=== PATIENT | female | born 1955 | race Caucasian/White ===

== ENCOUNTER 2020-04-27 11:11 | Outpatient (CLI) | payer MEDICARE, SELFPAY ==
--- NOTE | 2020-04-27 11:23 | XR_ITS ---
WS: [id number] LUMBAR SPINE: 6 VIEWS TECHNIQUE: AP, lateral, and L5-S1 spot. Lateral views in neutral, flexion and extension. HISTORY: M54.16 - Radiculopathy, lumbar region COMPARISON: None available. Mild LEFT convex curvature lumbar spine. L3 anterolisthesis by 8.5 mm. Otherwise mild degenerative di sc disease throughout the lumbar spine with severe facet arthritis from L3-4 to L5-S1. During flexion the anterolisthesis increases to 9.7 mm. During extension the anterolisthesis is 7.0 m m. Mild bilateral SI joint arthritis. Mild atherosclerosis aorta. XR/XR lumbar spine 6V w f/e [id number] IMPRESSION: 1. Severe facet joint arthritis from L3-4 to L5-S1. 2. L3 anterolisthesis by 8.5 mm with mild flexion extension instability. 3. Diffuse mild to moderate spondylosis.
== END 2020-04-27 11:12 | disposition home or self-care (01) ==
PROVIDERS: PCP Nurse Practitioner Family; Visit Provider Nurse Practitioner Family
DX: M54.16 Radiculopathy, lumbar region (principal); M47.816 Spondylosis without myelopathy or radiculopathy, lumbar region; M47.817 Spondylosis without myelopathy or radiculopathy, lumbosacral region
CPT/HCPCS: 72114

== ENCOUNTER 2020-07-13 08:44 | Outpatient (CLI) | payer MEDICARE, SELFPAY ==
--- NOTE | 2020-07-13 08:45 | MR_ITS ---
WS: [id number] MRI LUMBAR SPINE NONCONTRAST HISTORY: M43.10 - Spondylolisthesis, site unspecified COMPARISON: None available. TECHNIQUE: Sagittal and axial multisequence imaging is submitted. Increase in the lumbar lordosis. L2 anterolisthesis by 3 mm and L5 anterolisthesis by 5 mm. No marrow edema or fracture. Disc spaces are narrowed. Mild bulging and osteophytes. Conus terminates normally at L1. L1-L2: Bilateral facet joint arthritis. Diffuse annular disc bulging and osteophytic ridging resultin g in mild central, subarticular and foraminal stenosis. L2-L3: Diffuse annular disc bulging with ligamentum flavum hypertrophy and facet arthritis. Mild cent ral, subarticular recess and bilateral foraminal stenosis. L3-L4: Diffuse annular disc bulging with severe ligamentum flavum hypertrophy and facet arthritis. Fa cet joint arthritis encroaches into the posterior RIGHT lateral thecal sac. Moderate central and bila teral foraminal stenosis. L4-L5: Diffuse annular disc bulging and osteophytic ridging. Facet joint arthritis encroaching into t he thecal sac. Moderate to severe central with bilateral subarticular recess and foraminal stenosis. L5-S1: Diffuse annular disc bulging. Paravertebral soft tissues are normal. MR/MR lumbar spine wo con* [id number] IMPRESSION: 1. Multilevel central and foraminal stenoses and facet arthritis. 2. Moderate to severe central with bilateral subarticular recess and foraminal stenosis at L4-5. 3. Moderate central and bilateral foraminal stenosis at L3-4. 4. Mild central, subarticular and foraminal stenosis at L1-2 and L2-3. 5. L2 and L3 grade 1 anterolisthesis.
== END 2020-07-13 08:45 | disposition home or self-care (01) ==
LOC: RADSHAW 08:51
PROVIDERS: PCP Nurse Practitioner Family; Visit Provider Nurse Practitioner Family
DX: M43.10 Spondylolisthesis, site unspecified (principal); M53.2X6 Spinal instabilities, lumbar region; M48.061 Spinal stenosis, lumbar region without neurogenic claudication; M47.816 Spondylosis without myelopathy or radiculopathy, lumbar region
CPT/HCPCS: 72148

== ENCOUNTER → 2020-08-29 09:18 | Outpatient (BNVA) | payer MEDICARE, SELFPAY | PROVIDERS: PCP Nurse Practitioner Family; Visit Provider Specialist | DX: M25.569 Pain in unspecified knee (principal); M17.0 Bilateral primary osteoarthritis of knee | CPT/HCPCS: 73560; 73565 ==

== ENCOUNTER → 2020-10-10 08:40 | Outpatient (BNVA) | payer MEDICARE, SELFPAY | PROVIDERS: PCP Nurse Practitioner Family; Referring Provider Orthopaedic Surgery; Visit Provider Anesthesiology Pain Medicine | DX: G89.29 Other chronic pain (principal); M54.16 Radiculopathy, lumbar region; M47.816 Spondylosis without myelopathy or radiculopathy, lumbar region; M43.10 Spondylolisthesis, site unspecified; M17.0 Bilateral primary osteoarthritis of knee; Z79.891 Long term (current) use of opiate analgesic | CPT/HCPCS: 99205 ==

== ENCOUNTER 2020-10-18 06:00 | Outpatient (RCR) | payer MEDICARE, SELFPAY | END 2020-11-15 23:59 | disposition home or self-care (01) | LOC: WPT 06:00 | PROVIDERS: PCP Nurse Practitioner Family; Referring Provider Anesthesiology Pain Medicine; Visit Provider Anesthesiology Pain Medicine | DX: M54.5 Low back pain (principal); G89.29 Other chronic pain | CPT/HCPCS: 97110; 97161 ==

== ENCOUNTER → 2020-11-29 09:17 | Outpatient (BNVA) | payer MEDICARE, SELFPAY | PROVIDERS: PCP Nurse Practitioner Family; Visit Provider Anesthesiology Pain Medicine | DX: M47.816 Spondylosis without myelopathy or radiculopathy, lumbar region (principal); M54.16 Radiculopathy, lumbar region; M43.10 Spondylolisthesis, site unspecified; M17.0 Bilateral primary osteoarthritis of knee; Z87.891 Personal history of nicotine dependence | CPT/HCPCS: 99214; 99215 ==

== ENCOUNTER → 2020-12-13 09:28 | Outpatient (BNVA) | payer MEDICARE, SELFPAY | PROVIDERS: PCP Nurse Practitioner Family; Visit Provider Anesthesiology Pain Medicine | DX: M54.16 Radiculopathy, lumbar region (principal); M47.816 Spondylosis without myelopathy or radiculopathy, lumbar region; M43.10 Spondylolisthesis, site unspecified; M79.605 Pain in left leg; Z87.891 Personal history of nicotine dependence | CPT/HCPCS: 99214 ==

== ENCOUNTER → 2020-12-14 11:32 | Outpatient (BNVA) | payer MEDICARE, SELFPAY | PROVIDERS: PCP Nurse Practitioner Family; Visit Provider Nurse Practitioner Family | DX: F33.8 Other recurrent depressive disorders (principal); Z79.899 Other long term (current) drug therapy; E78.2 Mixed hyperlipidemia; E55.9 Vitamin D deficiency, unspecified; Z13.6 Encounter for screening for cardiovascular disorders; L98.9 Disorder of the skin and subcutaneous tissue, unspecified; Z82.49 Family history of ischemic heart disease and other diseases of the circulatory system | CPT/HCPCS: 80053; 80061; 81003; 82306; 83036; 84443; 85025 ==

== ENCOUNTER 2021-02-11 09:24 | Outpatient (CLI) | payer MEDICARE, SELFPAY ==
--- NOTE | 2021-02-11 09:30 | USCV_ITS ---
MikeAmanda Age: 65 Gender: F : 1955 Exam Date: 02/11/2021 09:39 Ordering Phys: YUKI Mcgowan APRN Technologist: LUIS ALFREDO Exam Location: [facility] [place] Indication: AAA screening. HISTORY: Diameter (cm) AP x Transverse x Length Velocity (cm/s) Waveform Prox Aorta: 2.68 x 2.65 x 85.90 Triphasic Mid Aorta: 2.22 x 2.15 x 82.60 Triphasic Distal Aorta: 1.64 x 2.18 x 81.80 Triphasic Right Iliac Prox: 1.22 x 1.41 x 89.20 Triphasic Left Iliac Prox: 1.26 x 1.31 x 112.40 Triphasic Stent Prox Landing x x Aneurysmal Sac Max x x Lt Lat Sac Dim Rt Lat Sac Dim Stent Dist Landing x x Right Iliac Stent x x Left Iliac Stent x x Right Renal Art Left Renal Art FINDINGS: CONCLUSIONS No evidence of abdominal aortic or bilateral iliac aneurysm. Greg Keller MD (Electronically Signed) Final Date: 11 February 2021 10:53 S
--- NOTE | 2021-02-11 10:15 | USCV_ITS ---
Amanda Mckeon Age: 65 Gender: F : 1955 Exam Date: 02/11/2021 10:00 Ordering Phys: YUKI Mcgowan APRN Technologist: LUIS ALFREDO Exam Location: [facility] [place] Indication: History of tricuspid regurgitation. Strep throat in youth, possible rheumatic fevere in youth. No hx cardiac intervention. BP: / HR: 63 Rhythm: Sinus Technical Quality: Adequate MEASUREMENTS (Male / Female) Normal Values 2D ECHO LV Diastolic Diameter PLAX 4.1 cm 4.2 - 5.9 / 3.9 - 5.3 cm LV Systolic Diameter PLAX 2.4 cm IVS Diastolic Thickness 1.3 cm 0.6 - 1.0 / 0.6 - 0.9 cm IVS Systolic Thickness 1.6 cm LVPW Diastolic Thickness 1.2 cm 0.6 - 1.0 / 0.6 - 0.9 cm LVPW Systolic Thickness 1.7 cm LVOT Diameter 1.9 cm LV Ejection Fraction 2D Teich 74.0 % LV Ejection Fraction MOD 2C 74.3 % LV Ejection Fraction 2C AL 75.0 % LA Diameter 3.8 cm LA Width 3.8 cm LA Height 5.7 cm RA Width 4.4 cm RA Height 5.5 cm Aorta at Sinotubular Diameter 2.8 cm M-MODE Aortic Annulus Diameter 3.1 cm LA Ao Ratio MM 1.3 MV E Point Septal Separation 0.3 cm DOPPLER AV Peak Velocity 134.0 cm/s LVOT Peak Velocity 104.0 cm/s AV Area Cont Eq vti 2.1 cm squared AV Area Cont Eq pk 2.1 cm squared MV Peak Velocity 94.0 cm/s MV Area PHT 5.0 cm squared Mitral E to A Ratio 0.8 MV E' Velocity 51.0 cm/s Mitral E to MV E' Ratio 9.6 Mitral E to LV E' Lateral Ratio 9.7 Mitral E to LV E' Septal Ratio 9.5 TR Peak Velocity 248.3 cm/s TR Peak Gradient 24.7 mmHg TV Peak E Velocity 56.0 cm/s Right Atrial Pressure 5.0 mmHg Pulmonary Artery Systolic Pressu 29.7 mmHg PV Peak Velocity 89.0 cm/s RV Acceleration Time 0.1 s RV Ejection Time 0.4 s RV AcT/ET 0.3 FINDINGS Left Ventricle Normal left ventricular size and systolic function, EF 73 %. No regional wall motion abnormalities. Grade I/IV diastolic dysfunction (abnormal relaxation filling pattern), normal to mildly elevated filling pressures. Right Ventricle The right ventricle is normal in size and function. Right Atrium The right atrium is normal in size. Left Atrium The left atrium is normal in size. Mitral Valve Mild mitral annular calcification. Mild mitral valve regurgitation. Aortic Valve No gross abnormalities noted Tricuspid Valve Trace tricuspid valve regurgitation. Pulmonic Valve Trace pulmonary valve regurgitation. Pericardium Normal pericardium without effusion. Aorta Normal aortic annulus size. CONCLUSIONS Normal left ventricular size and systolic function, EF 73 %. No regional wall motion abnormalities. Grade I/IV diastolic dysfunction (abnormal relaxation filling pattern), normal to mildly elevated filling pressures. Mild mitral annular calcification. Mild mitral valve regurgitation. Trace tricuspid and pulmonic valve regurgitation. Estimated pulmonary artery peak systolic pressure of 30 mmHg There is no pericardial effusion. There are no intracardiac masses. Compared to the study from 07/05/2014, there may not be a significant change Dr Cari Moe MD [facility] (Electronically Signed) Final Date: 12 February 2021 00:41 S
== END 2021-02-11 09:25 | disposition home or self-care (01) ==
PROVIDERS: PCP Nurse Practitioner Family; Visit Provider Nurse Practitioner Family
DX: Z13.6 Encounter for screening for cardiovascular disorders (principal); Z82.49 Family history of ischemic heart disease and other diseases of the circulatory system; I08.1 Rheumatic disorders of both mitral and tricuspid valves
CPT/HCPCS: 76706; 93306

== ENCOUNTER 2021-03-01 12:36 | Outpatient (CLI) | payer MEDICARE, SELFPAY ==
--- NOTE | 2021-03-01 13:00 | MM_ITS ---
WS: [id number] BILATERAL DIGITAL SCREENING MAMMOGRAPHY WITH CAD CLINICAL INFORMATION: Z12.31 - Encounter for screening mammogram for malignant ... HISTORY: Screening mammogram. No current complaints. COMPARISON: None. TECHNIQUE: Bilateral CC and MLO views. FINDINGS: Scattered fibroglandular densities bilaterally. Biopsy clip left breast. No suspicious focal mass, as ymmetry, calcifications, or architectural distortion. No evidence of malignancy. MM/[place] [id number] IMPRESSION: BI-RADS: 2-Benign FOLLOW UP: 1 Year Follow-up Recommend return to annual screening mammography.
== END 2021-03-01 12:37 | disposition home or self-care (01) ==
LOC: RADSHAW 12:45
PROVIDERS: PCP Nurse Practitioner Family; Visit Provider Nurse Practitioner Family
DX: Z12.31 Encounter for screening mammogram for malignant neoplasm of breast (principal)
CPT/HCPCS: 77067

== ENCOUNTER → 2021-09-04 13:33 | Outpatient (BNVA) | payer MEDICARE, SELFPAY | PROVIDERS: PCP Nurse Practitioner Family; Visit Provider Nurse Practitioner Family | DX: B02.9 Zoster without complications (principal); Z79.899 Other long term (current) drug therapy; F33.8 Other recurrent depressive disorders; Z13.6 Encounter for screening for cardiovascular disorders | CPT/HCPCS: 80053; 80061; 82306; 84443; 85025 ==

== ENCOUNTER → 2022-01-27 11:34 | Outpatient (BNVA) | payer MEDICARE, SELFPAY | PROVIDERS: Visit Provider Nurse Practitioner | DX: Z13.6 Encounter for screening for cardiovascular disorders (principal); E78.2 Mixed hyperlipidemia | CPT/HCPCS: 80061 ==

== ENCOUNTER → 2022-07-21 14:17 | Outpatient (BNVA) | payer MEDICARE, SELFPAY | PROVIDERS: Visit Provider Nurse Practitioner | DX: R05.9 Cough, unspecified (principal); R05.3 Chronic cough | CPT/HCPCS: 71046 ==

== ENCOUNTER 2022-08-06 12:24 | Outpatient (CLI) | payer MEDICARE, SELFPAY ==
--- NOTE | 2022-08-06 12:30 | USCV_ITS ---
Amanda Mckeon Age: 67 Gender: F : 1955 Exam Date: 08/06/2022 13:19 Ordering Phys: Prabha GeorgesP ENGINE EMISSION TECHNICIAN Technologist: ESTHER [place] [facility] [place]: CHRONIC COUGH, SHORTNESS OF BREATH BP: 140 / 86 HR: 65 Rhythm: Sinus Technical Quality: Adequate MEASUREMENTS (Male / Female) Normal Values 2D ECHO LVOT Diameter 2.0 cm LV Ejection Fraction MOD 2C 60.3 % LV Ejection Fraction 2C AL 62.8 % LA Diameter 3.6 cm LA Width 3.2 cm LA Height 4.5 cm RA Width 3.1 cm RA Height 4.6 cm Aorta at Sinotubular Diameter 2.3 cm IVC Diameter 1.9 cm M-MODE Aortic Annulus Diameter 2.3 cm LA Ao Ratio MM 1.6 MV E Point Septal Separation 0.4 cm DOPPLER AV Peak Velocity 160.0 cm/s LVOT Peak Velocity 118.0 cm/s AV Area Cont Eq vti 2.3 cm squared AV Area Cont Eq pk 2.3 cm squared MV Peak Velocity 121.0 cm/s MV Area PHT 3.6 cm squared Mitral E to A Ratio 0.7 MV E' Velocity 41.5 cm/s Mitral E to MV E' Ratio 6.8 Mitral E to LV E' Lateral Ratio 8.5 Mitral E to LV E' Septal Ratio 5.6 TR Peak Velocity 231.3 cm/s TR Peak Gradient 21.4 mmHg TR Mean Velocity 204.9 cm/s TR Mean Gradient 17.2 mmHg TR Velocity Time Integral 78.5 cm TV Peak E Velocity 55.0 cm/s Right Atrial Pressure 3.0 mmHg Pulmonary Artery Systolic Pressu 24.4 mmHg PV Peak Velocity 100.0 cm/s RV Acceleration Time 0.2 s RV Ejection Time 0.4 s RV AcT/ET 0.5 FINDINGS Left Ventricle Normal left ventricular size, systolic function and wall thickness, with no regional wall motion abnormalities. Left ventricular ejection fraction is estimated at 60 %. Normal diastolic function. Right Ventricle Normal right ventricular size and systolic function. Right ventricular systolic pressure 25 mmHg. Right Atrium Normal right atrial size. Left Atrium Normal left atrial size. Mitral Valve Mild mitral annular calcification. Structurally normal mitral valve. No mitral valve stenosis. Trace mitral valve regurgitation. Aortic Valve Structurally normal trileaflet aortic valve. No aortic valve stenosis. No aortic valve regurgitation. Tricuspid Valve Structurally normal tricuspid valve. No tricuspid valve stenosis. Trace to mild tricuspid valve regurgitation. Pulmonic Valve Structurally normal pulmonic valve. No pulmonary valve stenosis. Trace pulmonary valve regurgitation. Pericardium No pericardial effusion. Aorta Normal size aortic root and proximal ascending aorta. IVC Normal IVC dimension with >50% respiratory change of the inferior vena cava. CONCLUSIONS 1. Normal left ventricular size, systolic function and wall thickness, with no regional wall motion abnormalities. Left ventricular ejection fraction is estimated at 60 %. Normal diastolic function. 2. Trace to mild tricuspid valve regurgitation. 3. No significant change when compared to study dated 02/11/2021. Nieves Peterson MD (Electronically Signed) Final Date: 11 August 2022 16:34 S
== END 2022-08-06 12:25 | disposition home or self-care (01) ==
LOC: RAD 12:31
PROVIDERS: PCP Nurse Practitioner; Visit Provider Nurse Practitioner
DX: R05.3 Chronic cough (principal); I07.1 Rheumatic tricuspid insufficiency
CPT/HCPCS: 93306